=== PATIENT | female | born 1935 | race Two or more races ===

== ENCOUNTER 2024-09-16 21:43 | Emergency (ER) | payer MEDICARE, SELFPAY ==
--- NOTE | 2024-09-16 22:12 | PD.EDRME ---
Rapid Medical Screening Exam RME Arrival date/time: 09/16/24 21:43 Chief Complaint: Extremity Problem,Nontraumatic RME Narrative: Here with atrautic right shoulder/left neck pain for 8 days. 3 days with left lower chest pain. No chronic disease. VSS, she is non-toxic appearing. Work up initiated, medical screening exam complete.
[2024-09-16 22:13] VITALS: BP 154/77; PULSE 87; RESP 17; TEMP 36.9; O2SAT 96
--- NOTE | 2024-09-16 22:14 | XR_ITS ---
Examination: PA chest single view Technique whereby PA chest single view Date and time: September 16, 2024 10:22 PM INDICATIONS: Chest pain beginning 3 days ago. FINDINGS: Normal heart size Atelectasis in the lower lung zones with accentuation of bronchovascular markings No pulmonary edema Cardiac leads satisfactory position Prominent osteopenia IMPRESSION: Bibasilar bronchitis pattern
--- NOTE | 2024-09-16 22:14 | EKG_ITS ---
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
[2024-09-16] MEDS: ACETAMINOPHEN 500 MG TABLET 1000 MG PO (22:47)
[2024-09-16 22:52] LABS: Basophils # (Auto) 0.1 Thou/mm3 (0.0-0.2); Basophils % (Auto) 1 % (0-2.5); Eosinophils # (Auto) 0.2 Thou/mm3 (0.0-0.5); Eosinophils % (Auto) 3 % (0-10); Hematocrit 37.5 % (36.0-46.0); Hemoglobin 12.8 g/dL (12.0-16.0); Immature Granulocytes Auto 0.02 Thou/mm3 (0.00-0.00); Lymphocytes # (Auto) 1.7 Thou/mm3 (1.0-4.8); Lymphocytes % (Auto) 30 % (10-50); Mean Corpuscular HGB Conc 34.1 g/dl (31.0-37.0); Mean Corpuscular Hemoglobin 30.8 pg (25.0-35.0); Mean Corpuscular Volume 90 fL (80-100); Monocytes # (Auto) 0.5 Thou/mm3 (0.0-0.8); Monocytes % (Auto) 8 % (0-12); Neutrophils # (Auto) 3.3 Thou/mm3 (1.8-7.7); Neutrophils % (Auto) 58 % (37-80); Nucleated Red Blood Cell # 0.00 Thou/mm3 (0.00-0.00); Nucleated Red Blood Cell % 0 /100 WBC (0); Platelet Count 155 Thou/mm3 (140-440); RDW Standard Deviation 43.2 fL (36.4-46.3); Red Blood Count 4.16 Miln/mm3 (4.00-5.20); White Blood Count 5.7 Thou/mm3 (3.6-11.0)
[2024-09-16 23:14] LABS: Alanine Aminotransferase 19 U/L (10-49); Albumin, Serum 4.5 gm/dL (3.4-4.8); Albumin/Globulin Ratio 1.7 (1.2-2.2); Alkaline Phosphatase 95 U/L (46-116); Anion Gap 9 (7-16); Aspartate Amino Transferase 25 U/L (0-34); BUN/Creatinine Ratio 21 Ratio (12-20); Bilirubin,Total 0.9 mg/dL (0.3-1.2); Blood Urea Nitrogen 17 mg/dL (9-23); Calcium 9.1 mg/dL (8.3-10.6); Calcium (Corrected) 9.1 mg/dL (8.5-10.1); Carbon Dioxide 27.0 mMol/L (20.0-31.0); Chloride 105 mMol/L (98-107); Creatinine (Component) 0.8 mg/dL (0.6-1.3); Globulin 2.6 gm/dL (2.3-3.5); Glucose 146 mg/dL (74-106); Lipase 47 U/L (12-53); Osmolality,Calculated 285 (275-295); Potassium 4.3 mMol/L (3.4-5.1); Sodium 141 mMol/L (136-145); Total Protein 7.1 gm/dL (5.7-8.2); Troponin I < 0.020 ng/mL (0.0-0.045); eGFR > 60 See Note
[2024-09-17 01:29] VITALS: BP 135/79; PULSE 64; RESP 16; TEMP 36.6; O2SAT 95
--- NOTE | 2024-09-17 01:33 | PD.EDBACK ---
ED Back Injury Pain RME/HPI General Chief Complaint: Extremity Problem,Nontraumatic Stated Complaint: RIGHT SHOULDER PAIN Arrival date/time: 09/16/24 21:43 RME / HPI RME / HPI Narrative: Dr. Wooten?s Main ED Evaluation: 88yo female presents to the ED for a chief complaint of sharp mid right back pain for the last 8 days. Patient states she has a history of chronic back and neck pain, but states this pain is new. She has been taking Tylenol and diclofenac cream prescribed by her PCP with minimal relief. No chest pain, shortness of breath or any other associated symptoms. NKA. Related Data Allergies Allergy/AdvReac Type Severity Reaction Status Date / Time No Known Allergies Allergy Verified 09/16/24 21:47 Review of Systems Review of Systems Systems Reviewed: All systems reviewed, normal except as documented Past Medical History Social History SMOKING STATUS: Never smoker ED Exam Narrative Physical exam: GENERAL APPEARANCE: alert and oriented x 4, well-developed, well-nourished, no acute distress VITALS: All vitals were reviewed and the pulse ox is 95% on room air, which is normal according to my interpretation. HEENT: Normocephalic, atraumatic; pupils equal, round, reactive to light; EOMI; mucous membranes pink, moist; oropharynx clear NECK: Supple LUNGS: CTABL; no wheezes, no rales, no rhonchi HEART: Regular rate, regular rhythm; normal S1, S2; no murmurs ABDOMEN: non distended; normal BS; soft, no tenderness, no guarding, no rebound; no masses, no organomegaly, no hernia BACK: no CVA tenderness, mild kyphosis EXTREMITIES: atraumatic; no edema NEUROLOGIC: awake; alert and oriented x4; cranial nerves II-XII grossly intact; no focal sensory or motor deficits PSYCHIATRIC: appropriate mood and affect SKIN: warm, dry, normal color; no rashes Course Quality Measures none Orders Category Date Time Status EKG (ED ONLY) *Do not use* NOW Care 09/16/24 22:15 Completed EKG (ED Only) Stat Exams 09/16/24 22:14 Draft XR chest 1V Stat Exams 09/16/24 22:14 Completed XR thoracic spine 3V Stat Exams 09/17/24 01:35 Completed CBC Stat Lab 09/16/24 22:35 Completed CMP [Comprehensive Metabolic Panel] Stat Lab 09/16/24 22:35 Completed Lipase Stat Lab 09/16/24 22:35 Completed Troponin I Stat Lab 09/16/24 22:35 Completed Acetaminophen Tab [Tylenol ES Tab] Med 09/16/24 22:30 Discontinued 1,000 mg PO X1 ONE Ketorolac Inj [Toradol Inj] Med 09/17/24 01:35 Discontinued 30 mg IM X1 ONE Vital Signs Vital signs: Vital Signs Temperature 98.4 F 09/16/24 22:13 Pulse Rate 87 09/16/24 22:13 Respiratory Rate 17 09/16/24 22:13 Blood Pressure 154/77 H 09/16/24 22:13 Pulse Oximetry (%) 96 09/16/24 22:13 Oxygen Delivery Method Room Air 09/16/24 22:13 Back Pain / Injury MDM Narrative MDM Narrative:: Scribe Attestation: 09/17/24 Elana Gill am scribing for and in the presence of Dr. Wooten. Patient data External records reviewed:: [facility] previous records (Per chart review, patient has no previous ED visits or admissions to this facility.) Clinical information provided by:: patient Social determinants that could affect healthcare access:: none Patient has the following chronic illnesses:: none How is presenting disease/condition affected by chronic disease/condition?: no chronic disease Evaluation data The following diagnostics were reviewed and interpreted by me:: lab results and radiology exam(s) Lab and/or radiology exams considered but not ordered:: none Interpretation Summary: CBC normal, Glucose 146, Troponin normal. EKG done at 2217, paced rhythm, rate of 72, good sensing, good capture, no STEMI, according to my interpretation. Thoracic spine x-ray shows osteoporosis, scoliosis, arthritis changes, lucency in T11 of uncertain significance, according to my interpretation. [facility] Report Signed Patient: DOMENIC MCGILL. Record#: [id number] Birthdate: 1935 Age/Sex: 88 / F Location: [facility] Attending Dr: Ordering Physician: Luis Farris PA-C Date of Service: 09/16/24 Procedure(s): XR chest 1V Accession Number(s): [id number] cc: David Mcginnis MD; Luis Farris PA-C~ Examination: PA chest single view Technique whereby PA chest single view Date and time: September 16, 2024 10:22 PM INDICATIONS: Chest pain beginning 3 days ago. FINDINGS: Normal heart size Atelectasis in the lower lung zones with accentuation of bronchovascular markings No pulmonary edema Cardiac leads satisfactory position Prominent osteopenia IMPRESSION: Bibasilar bronchitis pattern Dictated By: David Mcginnis MD Signed By: <Electronically signed by David Mcginnis MD in OV> 09/16/24 2227 Medications / Prescriptions Medications or Prescriptions considered but not ordered:: none Medication administrations:: Medication Administration History Discontinued Medications Acetaminophen (Acetaminophen 500 Mg Tablet) 1,000 mg PO X1 ONE Stop: 09/16/24 22:31 Last Admin: 09/16/24 22:47 Dose: 1,000 mg Documented By: KASIE Ketorolac Tromethamine (Ketorolac Inj 30 Mg/Ml Vial) 30 mg IM X1 ONE Stop: 09/17/24 01:36 Last Admin: 09/17/24 01:43 Dose: 30 mg Documented By: BD see above Consultations Consultation(s) initiated? (list below): No Diagnosis Differential diagnosis back pain/injury: other (compression fx, lumbar fx, osteoarthritis) Most likely diagnosis given after review of the tests above:: see clinical impression below Admission Indicated Admission indicated?: not indicated Explain why admission is indicated or not indicated:: With no condition needing emergent intervention, there was no indication for admission. Plan to follow pending official thoracic x-ray read. Admission Request Was there a request for admission?: No Disposition Plan Disposition Plan: Discharge Discharge Attestation Discharge Attestation: The patient and all family members were given an opportunity to ask questions and understood the discharge instructions. Discharge instructions specifically effects, indications for sooner follow up or return to the emergency department, and the expected course of current diagnosis. Patient condition: Stable Discharge Plan Plan Patient Disposition: HOME (Self Care) Prescriptions/Referrals Referrals: No Primary/Family,Physician [Primary Care Provider] - In 1 week Problem List Clinical Impression: Right-sided thoracic back pain, Osteoarthritis Patient/Caregiver Discharge Instructions Education Materials: ED Osteoarthritis Print Language: [place]ese Stand Alone Forms: [facility] Award Info., Patient Portal Info Letter
--- NOTE | 2024-09-17 01:35 | XR_ITS ---
Examination: Thoracic spine 2 views TECHNIQUE: AP lateral thoracic spine 2 views INDICATIONS: Mid back pain today. FINDINGS: Thoracic levoscoliosis 15 degrees No acute thoracic fracture Prominent osteopenia. Mild chronic osteoporotic wedging upper dorsal vertebral bodies Moderate diffuse thoracic degenerative disc disease Exenteration basilar bronchovascular markings Cardiac leads satisfactory position IMPRESSION: Thoracic levoscoliosis 15 degrees Moderate diffuse thoracic degenerative disc disease
[2024-09-17] MEDS: KETOROLAC INJ 30 MG/ML VIAL IM (01:43)
[2024-09-17 02:35] VITALS: RESP 16
== END 2024-09-17 02:35 | disposition home or self-care (01) ==
PROVIDERS: Physician Assistant Medical; Emergency Provider Emergency Medicine
DX: M47.814 Spondylosis without myelopathy or radiculopathy, thoracic region (principal); R94.31 Abnormal electrocardiogram [ECG] [EKG]; Z95.0 Presence of cardiac pacemaker; R07.9 Chest pain, unspecified; M81.0 Age-related osteoporosis without current pathological fracture; M41.9 Scoliosis, unspecified
CPT/HCPCS: 36415; 71045; 72072; 80053; 83690; 84484; 85025; 93005; 96372; 99283; J1885; A9270

== ENCOUNTER 2024-12-30 10:59 | Emergency (ER) | payer MEDICARE, MEDICAID, SELFPAY ==
[2024-12-30 11:16] VITALS: BP 130/70; PULSE 71; RESP 16; TEMP 36.4; O2SAT 96; BMI 29.2
--- NOTE | 2024-12-30 11:20 | XR_ITS ---
Examination: Ribs, left, with PA chest, 3 views Technique: Chest PA, RIBS AP, RPO, LPO, AP coned lower ribs 6 views Exam date and time: 12/30/2024, 11:34 a.m. COMPARISON: Chest radiograph 09/16/2024 Findings: Multiple left-sided rib fractures are present, some chronic in appearance, some potentially acute. No significant fracture displacement. Redemonstration of bibasilar atelectasis and/or scarring, grossly similar in appearance compared to prior exam. No lobar consolidation, pleural effusion or pneumothorax. Heart size is within normal limits. Redemonstration of dual-chamber cardiac pacemaker and aortic atherosclerosis. Redemonstration of osteoarthrosis of both shoulders and multilevel spondylosis with biphasic curvature, dominant convex toward the left. IMPRESSION: Multiple left-sided rib fractures, several chronic in appearance. No significant fracture displacement. Chest CT could be considered for further evaluation/delineation of acute versus chronic rib fractures. Stable appearance of the lungs with bibasilar atelectasis and/or scarring. No evidence for pneumothorax, pleural effusion or lobar consolidation.
--- NOTE | 2024-12-30 11:20 | XR_ITS ---
Examination: Knee, left, 3 views Technique: Knee AP, lateral, oblique 3 views Date and time of exam: 12/30/2024, 11:42 a.m. Indication: Fall, injury today COMPARISON: None FINDINGS: There appears to be heterogeneous osteopenia but otherwise no acute fracture or dislocation is seen. Joint spaces are well-maintained for age. Mild anterior suprapatellar enthesophyte formation is present. No apparent joint effusion. There appears to be anterior soft tissue swelling. Diffuse atherosclerosis is present above, at and below the knee. IMPRESSION: No evidence for acute fracture or dislocation.
--- NOTE | 2024-12-30 11:20 | XR_ITS ---
Examination: CT cervical spine without contrast 2-D sagittal reconstructions 2-D coronal reconstructions 3-D reconstructions. Exam date and time: 12/30/2024, 11:57 a.m. CTDI:vol (mGy) 15.5 DLP: (mGycm) 339 HISTORY: Pain to the back of the head and neck after fall today. COMPARISON: No prior dedicated cervical spine imaging. Technique: Multiple 2 mm axial sections of the cervical spine have been obtained. The coronal and sagittal reconstructions have been obtained. 3-D reconstructions have been obtained. Low dose protocols were performed. One or more of the following dose reduction techniques were used; automated exposure control, adjustment of the mA and/or KV according to patient size, use of iterative reconstruction technique. Findings: Axial sections demonstrate intact base of the skull. C1 exhibit satisfactory relationship to the odontoid. No acute cervical vertebral body fracture seen. No prevertebral soft tissue swelling. No acute traumatic listhesis. Grade 1 degenerative anterolistheses of C7 over T1, T1 over T2, T2 over T3 and T3 over T4 are visualized. Multilevel cervical spondylosis and degenerative disc related changes are present, with multilevel bilateral facet arthropathy, more severe on the left side, and multifactorial mild neural foraminal stenosis and nonsevere central canal stenosis and no large disc herniation. No mass. Cardiac pacemaker noted. Impression: No acute cervical fracture.
--- NOTE | 2024-12-30 11:20 | XR_ITS ---
Examination: CT brain head without contrast. 2-D sagittal coronal reconstructions Date and time of exam: 12/30/2024, 11:56 a.m. CTDI: vol (mGy): 52 DLP: (mGycm): 1027 INDICATION: Posterior head and neck pain after fall today. COMPARISON: No prior dedicated head imaging. Technique: Multiple CT axial sections of the brain have been obtained, 5 mm slice thickness. Contrast has not been administered. 2-D sagittal, coronal reconstructions have been obtained Low dose protocols were performed. One or more of the following dose reduction techniques were used; automated exposure control, adjustment of the mA and/or KV according to patient size, use of iterative reconstruction technique. Findings: No significant ventricular enlargement. Intra-axial or extra-axial hemorrhage density is not seen. No mass effect or midline shift Basal cisterns are not remarkable. Fourth ventricle is midline. No calvarial fracture. Possible recent fracture deformity of the posterolateral wall of the left maxillary sinus with mild cortical buckling and adjacent punctate focus of soft tissue gas outside of the sinus. Heterogeneous hemorrhagic type density is identified in the left maxillary sinus with additional mild fluid and frothy secretions identified in the adjacent left nasal passage. Mild mucosal hypertrophy is present in bilateral ethmoid air cells, most pronounced anteriorly. No anterior maxillofacial soft tissue swelling detected. Sequela of ocular lens replacement surgery noted. Impression: Negative for acute intracranial hemorrhage, mass effect or midline shift. Possible recent fracture of the posterolateral left maxillary sinus wall with internal hemorrhagic density. However, no evidence for maxillofacial soft tissue swelling to suggest acute traumatic change in the region. Alternative for the hyperdense opacification of the left maxillary sinus includes sinus disease with inspissated material and/or fungal debris. There is correlate for regional tenderness. Otherwise, no skull fracture detected.
--- NOTE | 2024-12-30 11:25 | EDRME_ITS ---
Rapid Medical Screening Exam [facility] Arrival date/time: 12/30/24 10:59 89-year-old female with no known medical history presents to the emergency room with a chief complaint of tenderness to her head neck left knee and left rib cage after a ground-level fall that occurred when she tripped over something on an hour ago I have greeted and performed a focused initial assessment of this patient. A comprehensive ED assessment and evaluation of the patient, analysis of all test results, and completion of the medical decision making process will be conducted by additional ED providers. Chief Complaint: Fall Time Seen by Provider: 12/30/24 11:09 Vital signs: Vital Signs Temperature 97.6 F 12/30/24 11:16 Pulse Rate 71 12/30/24 11:16 Respiratory Rate 16 12/30/24 11:16 Blood Pressure 130/70 12/30/24 11:16 Pulse Oximetry (%) 96 12/30/24 11:16 Oxygen Delivery Method Room Air 12/30/24 11:16 Vital signs reviewed by provider: Yes Exam: Patient is a GCS 15 alert and oriented x 3 pupils are PERRLA EOMs are intact Clear bilateral lung sounds Clinical Impression: Subdural hematoma/closed head injury
--- NOTE | 2024-12-30 16:04 | PD.EDFALL ---
ED Fall Injury RME/HPI General Chief Complaint: Fall Stated Complaint: FALL HITTING FACE & RIB Time Seen by Provider: 12/30/24 11:09 Arrival date/time: 12/30/24 10:59 RME / HPI RME / HPI Narrative: 12/30/24 10:59 89-year-old female with no known medical history presents to the emergency room with a chief complaint of tenderness to her head neck left knee and left rib cage after a ground-level fall that occurred when she tripped over something on an hour ago I have greeted and performed a focused initial assessment of this patient. A comprehensive ED assessment and evaluation of the patient, analysis of all test results, and completion of the medical decision making process will be conducted by additional ED providers. DR. WOOTEN MAIN ED EVALUATION 89 year old female with no stated medical history presents to the ED for evaluation after ground level mechanical fall that occurred at 09:00 AM today. Patient reports she was walking in her home when she tripped and fell, striking the left side of face and left side of body on the floor. Associated with left facial and left rib cage pain that is aggravated with taking deep breaths. States she has taken Tylenol at home with some improvement in pain. Reportedly was able to stand with assistance and had no prolonged downtime. No LOC. No neck pain. No other injuries reported. Denies chest pain, cough, or shortness of breath. Exam: Patient is a GCS 15 alert and oriented x 3 pupils are PERRLA EOMs are intact Clear bilateral lung sounds Impression: Subdural hematoma/closed head injury Related Data Previous Rx's ?Medication ?Instructions ?Recorded amoxicillin 500 mg-potassium 1 tab PO TID #30 tabs 12/30/24 clavulanate 125 mg tablet (Augmentin) Allergies Allergy/AdvReac Type Severity Reaction Status Date / Time No Known Allergies Allergy Verified 12/30/24 11:07 Review of Systems Review of Systems Systems Reviewed: All systems reviewed, normal except as documented Past Medical History Social History SMOKING STATUS: Never smoker ED Exam Narrative Physical exam: GENERAL APPEARANCE: alert and oriented x 4, well-developed, well-nourished, no acute distress HEENT: Normocephalic, mild ecchymosis inferior periorbital/upper cheek with mild tenderness; pupils equal, round, reactive to light; EOMI; mucous membranes pink, moist; oropharynx clear NECK: Supple LUNGS: CTABL; no wheezes, no rales, no rhonchi HEART: Regular rate, regular rhythm; normal S1, S2; no murmurs CHEST: Tenderness to the left ribs, no step off, no crepitus ABDOMEN: non distended; normal BS; soft, no tenderness, no guarding, no rebound; no masses, no organomegaly, no hernia BACK: no CVA tenderness EXTREMITIES: atraumatic; no edema NEUROLOGIC: awake; alert and oriented x4; cranial nerves II-XII grossly intact; no focal sensory or motor deficits PSYCHIATRIC: appropriate mood and affect SKIN: warm, dry, normal color; no rashes Course Course Course Narrative: Patient remains clinically stable throughout the emergency department visit. We reviewed all the results, analysis, and treatment plans. Patient is amenable to discharge. Strict return precautions were outlined. Quality Measures none Orders Category Date Time Status CT cervical spine wo con Stat Exams 12/30/24 11:[address] head/brain wo con Stat Exams 12/30/24 11:20 Completed XR knee LT 3V Stat Exams 12/30/24 11:20 Completed XR ribs LT min 3V w CXR1V Stat Exams 12/30/24 11:20 Completed Acetaminophen Tab [Tylenol ES Tab] Med 12/30/24 16:04 Discontinued 1,000 mg PO X1 ONE Amoxicillin/Pot Clav 875 [Augmentin 875] Med 12/30/24 16:04 Discontinued 1 tab PO X1 ONE Vital Signs Vital signs: Vital Signs Temperature 97.6 F 12/30/24 11:16 Pulse Rate 71 12/30/24 11:16 Respiratory Rate 16 12/30/24 11:16 Blood Pressure 130/70 12/30/24 11:16 Pulse Oximetry (%) 96 12/30/24 11:16 Oxygen Delivery Method Room Air 12/30/24 11:16 Pulse ox is 96% on room air which is adequate. Fall MDM Narrative MDM Narrative:: Nicolasa Denis am scribing for and in the presence of Dr. Wooten. Patient data External records reviewed:: [facility] previous records Clinical information provided by:: patient Social determinants that could affect healthcare access:: none Patient has the following chronic illnesses:: None reported How is presenting disease/condition affected by chronic disease/condition?: no chronic disease Evaluation data The following diagnostics were reviewed and interpreted by me:: radiology exam(s) Lab and/or radiology exams considered but not ordered:: None Interpretation Summary: Ordering Physician: Kishore Doan Date of Service: 12/30/24 Procedure(s): CT cervical spine wo con Accession Number(s): [id number] cc: Kishore DoanP; Sheryl Whitfield DIRECTOR OF [employer]; Chai Renteria DO~ Examination: CT cervical spine without contrast 2-D sagittal reconstructions 2-D coronal reconstructions 3-D reconstructions. Exam date and time: 12/30/2024, 11:57 a.m. CTDI:vol (mGy) 15.5 DLP: (mGycm) 339 HISTORY: Pain to the back of the head and neck after fall today. COMPARISON: No prior dedicated cervical spine imaging. Technique: Multiple 2 mm axial sections of the cervical spine have been obtained. The coronal and sagittal reconstructions have been obtained. 3-D reconstructions have been obtained. Low dose protocols were performed. One or more of the following dose reduction techniques were used; automated exposure control, adjustment of the mA and/or KV according to patient size, use of iterative reconstruction technique. Findings: Axial sections demonstrate intact base of the skull. C1 exhibit satisfactory relationship to the odontoid. No acute cervical vertebral body fracture seen. No prevertebral soft tissue swelling. No acute traumatic listhesis. Grade 1 degenerative anterolistheses of C7 over T1, T1 over T2, T2 over T3 and T3 over T4 are visualized. Multilevel cervical spondylosis and degenerative disc related changes are present, with multilevel bilateral facet arthropathy, more severe on the left side, and multifactorial mild neural foraminal stenosis and nonsevere central canal stenosis and no large disc herniation. No mass. Cardiac pacemaker noted. Impression: No acute cervical fracture. Dictated By: Chai Renteria DO Signed By: <Electronically signed by Chai Renteria DO in OV> 12/30/24 1237 Ordering Physician: Kishore Doan Date of Service: 12/30/24 Procedure(s): CT head/brain wo con Accession Number(s): [id number] cc: Kishore Doan; Sheryl Whitfield DIRECT[employer]; Chai Renteria DO~ Examination: CT brain head without contrast. 2-D sagittal coronal reconstructions Date and time of exam: 12/30/2024, 11:56 a.m. CTDI: vol (mGy): 52 DLP: (mGycm): 1027 INDICATION: Posterior head and neck pain after fall today. COMPARISON: No prior dedicated head imaging. Technique: Multiple CT axial sections of the brain have been obtained, 5 mm slice thickness. Contrast has not been administered. 2-D sagittal, coronal reconstructions have been obtained Low dose protocols were performed. One or more of the following dose reduction techniques were used; automated exposure control, adjustment of the mA and/or KV according to patient size, use of iterative reconstruction technique. Findings: No significant ventricular enlargement. Intra-axial or extra-axial hemorrhage density is not seen. No mass effect or midline shift Basal cisterns are not remarkable. Fourth ventricle is midline. No calvarial fracture. Possible recent fracture deformity of the posterolateral wall of the left maxillary sinus with mild cortical buckling and adjacent punctate focus of soft tissue gas outside of the sinus. Heterogeneous hemorrhagic type density is identified in the left maxillary sinus with additional mild fluid and frothy secretions identified in the adjacent left nasal passage. Mild mucosal hypertrophy is present in bilateral ethmoid air cells, most pronounced anteriorly. No anterior maxillofacial soft tissue swelling detected. Sequela of ocular lens replacement surgery noted. Impression: Negative for acute intracranial hemorrhage, mass effect or midline shift. Possible recent fracture of the posterolateral left maxillary sinus wall with internal hemorrhagic density. However, no evidence for maxillofacial soft tissue swelling to suggest acute traumatic change in the region. Alternative for the hyperdense opacification of the left maxillary sinus includes sinus disease with inspissated material and/or fungal debris. There is correlate for regional tenderness. Otherwise, no skull fracture detected. Dictated By: Chai Renteria DO Signed By: <Electronically signed by Chai Renteria DO in OV> 12/30/24 1242 Ordering Physician: Kishore Doan Date of Service: 12/30/24 Procedure(s): XR knee LT 3V Accession Number(s): [id number] cc: Kishore Doan; Sheryl Whitfield DIRECT[employer]; Chai Renteria DO~ Examination: Knee, left, 3 views Technique: Knee AP, lateral, oblique 3 views Date and time of exam: 12/30/2024, 11:42 a.m. Indication: Fall, injury today COMPARISON: None FINDINGS: There appears to be heterogeneous osteopenia but otherwise no acute fracture or dislocation is seen. Joint spaces are well-maintained for age. Mild anterior suprapatellar enthesophyte formation is present. No apparent joint effusion. There appears to be anterior soft tissue swelling. Diffuse atherosclerosis is present above, at and below the knee. IMPRESSION: No evidence for acute fracture or dislocation. Dictated By: Chai Renteria DO Signed By: <Electronically signed by Chai Renteria DO in OV> 12/30/24 1156 Ordering Physician: Kishore Doan Date of Service: 12/30/24 Procedure(s): XR ribs LT min 3V w CXR1V Accession Number(s): [id number] cc: Kishore Doan; Sheryl Whitfield DIRECT[employer]; Chai Renteria DO~ Examination: Ribs, left, with PA chest, 3 views Technique: Chest PA, RIBS AP, RPO, LPO, AP coned lower ribs 6 views Exam date and time: 12/30/2024, 11:34 a.m. COMPARISON: Chest radiograph 09/16/2024 Findings: Multiple left-sided rib fractures are present, some chronic in appearance, some potentially acute. No significant fracture displacement. Redemonstration of bibasilar atelectasis and/or scarring, grossly similar in appearance compared to prior exam. No lobar consolidation, pleural effusion or pneumothorax. Heart size is within normal limits. Redemonstration of dual-chamber cardiac pacemaker and aortic atherosclerosis. Redemonstration of osteoarthrosis of both shoulders and multilevel spondylosis with biphasic curvature, dominant convex toward the left. IMPRESSION: Multiple left-sided rib fractures, several chronic in appearance. No significant fracture displacement. Chest CT could be considered for further evaluation/delineation of acute versus chronic rib fractures. Stable appearance of the lungs with bibasilar atelectasis and/or scarring. No evidence for pneumothorax, pleural effusion or lobar consolidation. Dictated By: Chai Renteria DO Signed By: <Electronically signed by Chai Renteria DO in OV> 12/30/24 1201 Medications / Prescriptions Medications or Prescriptions considered but not ordered:: None Medication administrations:: Medication Administration History Discontinued Medications Acetaminophen (Acetaminophen 500 Mg Tablet) 1,000 mg PO X1 ONE Stop: 12/30/24 16:05 Last Admin: 12/30/24 16:16 Dose: 1,000 mg Documented By: YING Amoxicillin/Clavulanate Potassium (Amoxicillin/Pot Clav 875 Tablet) 1 tab PO X1 ONE Stop: 12/30/24 16:05 Last Admin: 12/30/24 16:17 Dose: 1 tab Documented By: YING See above Consultations Consultation(s) initiated? (list below): No Diagnosis Fall Differential Diagnosis: syncope and other (fractures, contusion, fall ) Most likely diagnosis given after review of the tests above:: Ground level fall Open fracture of left maxillary sinus Rib fractures Admission Indicated Admission indicated?: not indicated Admission Request Was there a request for admission?: No Disposition Plan Disposition Plan: Discharge Discharge Attestation Discharge Attestation: The patient and all family members were given an opportunity to ask questions and understood the discharge instructions. Discharge instructions specifically effects, indications for sooner follow up or return to the emergency department, and the expected course of current diagnosis. Patient condition: Stable Discharge Plan Plan Patient Disposition: HOME (Self Care) Prescriptions/Referrals Prescriptions/Med Rec: New amoxicillin-pot clavulanate [Augmentin] 500-125 mg tablet 1 tab PO TID Qty: 30 0RF Referrals: Sheryl Whitfield NP [Primary Care Provider] - In 1 week Problem List Clinical Impression: Ground-level fall, Open fracture of left maxillary sinus, Rib fractures Patient/Caregiver Discharge Instructions Education Materials: Facial Fracture, ED Rib Fracture Print Language: Honduran Stand Alone Forms: Justina Award Info., Patient Portal Info Letter
[2024-12-30] MEDS: ACETAMINOPHEN 500 MG TABLET 1000 MG PO (16:16)
[2024-12-30] MEDS: AMOXICILLIN/POT CLAV 875 TABLET 1 TAB PO (16:17)
[2024-12-30 16:20] VITALS: BP 128/77; PULSE 62; RESP 14; TEMP 36.8; O2SAT 96
== END 2024-12-30 16:20 | disposition home or self-care (01) ==
PROVIDERS: Emergency Provider Emergency Medicine; PCP Nurse Practitioner Family
DX: S06.5X0A Traumatic subdural hemorrhage without loss of consciousness, initial encounter (principal); S02.40DA Maxillary fracture, left side, initial encounter for closed fracture; S22.42XA Multiple fractures of ribs, left side, initial encounter for closed fracture; S27.0XXA Traumatic pneumothorax, initial encounter; W01.0XXA Fall on same level from slipping, tripping and stumbling without subsequent striking against object, initial encounter; Y92.009 Unspecified place in unspecified non-institutional (private) residence as the place of occurrence of the external cause; Y93.01 Activity, walking, marching and hiking
CPT/HCPCS: 70450; 71101; 72125; 73562; 99283; A9270